=== PATIENT | female | born 1995 | race Caucasian/White ===

== ENCOUNTER → 2024-07-06 | Outpatient (CLI) | payer OTHER, SELFPAY ==
[2024-07-06 12:23] LABS: Absolute Neutrophil Count 8.1 X10^3/uL (2.0-7.7); Basophil# 0.06 X10^3/uL; Basophil% 0.5 % (0-1); Eosinophils% 1.7 % (0-5); Hematocrit 37.1 % (37-47); Hemoglobin 11.7 g/dL (12.0-15.0); Lymphocyte % 16.6 % (19-41); Mean Corp Hgb Conc 31.5 g/dL (32-36); Mean Corpuscular Hgb 26.2 pg (27.0-32.0); Mean Corpuscular Volume 83.2 fL (81-99); Mean Platelet Vol. 9.1 fl (6.2-12.0); Monocyte# 1.21 X10^3/uL; NRBC Flagged by Analyzer 0 % (0-5); Neutrophil # 8.14 X10^3/uL (2.7-7.7); Neutrophil % 67.6 % (47-70); Platelet Count 329 K/mm3 (150-450); RBC Distribution Width SD 42.4 fl (35.1-43.9); Red Blood Count 4.46 M/mm3 (4.2-5.4)
[2024-07-06 13:15] LABS: HIV - WCH Non-Reactive (Nonreactive); Syphilis Antibodies Non-reactive
== END | disposition home or self-care (01) ==
PROVIDERS: Referring Provider Obstetrics & Gynecology; Visit Provider Obstetrics & Gynecology
DX: O09.90 Supervision of high risk pregnancy, unspecified, unspecified trimester (principal); Z3A.00 Weeks of gestation of pregnancy not specified
CPT/HCPCS: 36415; 85025; 86703; 86780; 86850; 86900; 86901

== ENCOUNTER → 2024-07-26 | Outpatient (CLI) | payer OTHER, SELFPAY ==
[2024-07-30 03:13] LABS: Chlamydia By Nucleic Acid AMP Negative (Negative); Gonococcus By Nucleic Acid AMP Negative (Negative)
== END | disposition home or self-care (01) ==
PROVIDERS: Referring Provider Obstetrics & Gynecology; Visit Provider Obstetrics & Gynecology
DX: O09.90 Supervision of high risk pregnancy, unspecified, unspecified trimester (principal); Z3A.00 Weeks of gestation of pregnancy not specified
CPT/HCPCS: 87081; 87491; 87591

== ENCOUNTER 2024-08-05 19:40 | Inpatient (IN) | payer OTHER, SELFPAY ==
[2024-08-05] VITALS (33 sets, daily range): BP systolic 106–172; BP diastolic 56–90; PULSE 82–150; RESP 14–16; TEMP 36.1–36.6; O2SAT 97–100; BMI 35.4
[2024-08-05] MEDS: Lactated Ringers 1,000 ML 999 ML IV (20:05)
[2024-08-05] MEDS: Lactated Ringers 1,000 ML 50 ML IV (20:05)
[2024-08-05 20:24] LABS: Absolute Lymphocyte Count 2.69 X10^3/uL (0.83-4.51); Absolute Neutrophil Count 7.8 X10^3/uL (2.0-7.7); Basophil# 0.06 X10^3/uL; Basophil% 0.5 % (0-1); Eosinophil# 0.21 X10^3/uL; Eosinophils% 1.7 % (0-5); Hematocrit 36.3 % (37-47); Hemoglobin 11.4 g/dL (12.0-15.0); Lymphocyte # 2.69 X10^3/ul (0.83-4.51); Lymphocyte % 21.9 % (19-41); Mean Corp Hgb Conc 31.4 g/dL (32-36); Mean Corpuscular Hgb 25.3 pg (27.0-32.0); Mean Corpuscular Volume 80.5 fL (81-99); Mean Platelet Vol. 9.3 fl (6.2-12.0); Monocyte# 1.27 X10^3/uL; Monocyte% 10.3 % (0-10); NRBC Flagged by Analyzer 0 % (0-5); Neutrophil # 7.78 X10^3/uL (2.7-7.7); Neutrophil % 63.4 % (47-70); Platelet Count 309 K/mm3 (150-450); RBC Distribution Width CV 14.7 % (11.6-14.6); RBC Distribution Width SD 42.9 fl (35.1-43.9); Red Blood Count 4.51 M/mm3 (4.2-5.4); White Blood Count 12.3 K/mm3 (4.4-11.0)
[2024-08-05 20:37] LABS: AST(SGOT) 22 U/L (15-37); Alanine Aminotransfer ALT/SGPT 17 U/L (13-56); Creatinine, Serum 0.63 mg/dL (0.55-1.02); EST Glomerular Filtration Rate 119 mL/min (>60); Est Glom Filt Rate - Afr Amer 144 mL/min (>60); Estimated Creatinine Clearance 147.63 ml/min; Uric Acid 4.1 mg/dL (2.6-6.0)
[2024-08-05 20:38] LABS: Protein, Urine (Random) 20.6 mg/dL (<11.9); Protein:Creat Ratio 418 mg/g CRE (0-200)
[2024-08-05 20:57] LABS: Syphilis Antibodies Non-reactive
--- NOTE | 2024-08-05 21:25 | HP.PCM.OB_ITS ---
HPI - General General Date of Admission: 08/05/24 Date of Service: 08/05/24 HPI Narrative ZENON BAR, is a 29 F 37.6 weeks who presents to unit with contractions. had cervical change from office on . Elevated BPs noted 5 minutes apart on admission. After 15 minutes the BPs were below protocol. Dr Day aware and agrees with plan for pre eclampsia labs and to continue to monitor bps. If meets protocol will start HTN protocol. Maternal Data Information RADHA Calculator Estimated Delivery Date Method Current WG Current Estimate 08/20/24 LMP (Certain) 37w 6d Final RADHA: 08/20/24 Final RADHA Source: US >20 weeks Gestational age: 37.6 weeks PFSH PFS Home Medications ?Medication ?Instructions ?Recorded ?Last Taken ?Type docosahexaenoic acid 200 mg 1 mg PO DAILY 07/03/24 08/04/24 History capsule ( DHA) cyanocobalamin-liver extract tablet 1 tab PO DAILY pregnanc 07/06/24 08/04/24 History magnesium 250 mg tablet 250 mg PO DAILY 07/06/24 08/05/24 History omega-3 fatty acids 1,000 mg 1,000 mg PO DAILY 07/06/24 08/04/24 History capsule aspirin 81 mg tablet,delayed 81 mg PO QDAY 08/02/24 08/04/24 History release (Adult Low Dose Aspirin) Allergy/AdvReac Type Severity Reaction Status Date / Time latex Allergy Mild Hives Verified 08/05/24 19:25 Penicillins Allergy Mild Hives Verified 08/05/24 19:25 Family History Grandmother Bone cancer Lung cancer Grandfather CVA (cerebral vascular accident) Grandmother Lung cancer Grandfather Myocardial infarction Surgical History Attempted IUD removal, unsuccessful S/P tonsillectomy Social History adopted: No household members: spouse and children number of children: 1 current occupational status: employed 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 current occupational exposures/hazards: No pets and animals: Yes pets and animals: dog(s) history of recent travel: Yes details: [place] - 06/06 out of state: Yes out of country: No sexually active: Yes Smoking Status: Never smoker alcohol intake: current alcohol intake frequency: holidays/special occasions only details: Not while substance use type: does not use well-balanced diet: daily or most days caffeine: Yes Type: coffee eating out: rarely or never during the past year weight has: other details: when son was 8mo old sarah/hoahaoism: Jew seatbelt use: always do you feel safe at home: Yes additional social history: : Marcell Montero History 2 Elective abortions Hx Para 1 Spontaneous abortions Hx # Term Pregnancies 1 Ectopic pregnancies Hx # Pregnancies Multiple births # of living children 1 Past Pregnancies Del. Date Name GA/Weeks Outcome Route Bth Weight Gen Labor Lgth Anesthesia Del Locatn Provider FOB 12/16/22 [facility] 37 live - full term 6lbs 5oz Male epidural [facility] Delivery Date: 12/16/22 Last Updated by: Lupe Andre RN Dx with Pre-e at 36 1/2weeks - Induced Visit Details Expected Delivery Route/Plan Labor Preferences- CB/BF classes: [] labor support person: [] labor intervention preferences: [] pain management options preferred: [] cut cord/dad catch: [] : [] PP control planned: [] discussed possible routes of delivery and associated risks: [] special requests: [] Plans Covid status: [] Flu vaccine: [] Tdap vaccine: [] Rhogam: [] LARC form signed: [] Problem list reviewed and updated with the most current plan of care details and appropriate orders placed. Relevant counseling for the gestational age provided. Continue routine care and follow up unless otherwise noted in visit notes/problem list details OB Flowsheet Initial Weight: Not Recorded Date -?-?-?-?-?-?-?-?-?-?-?-?- EGA Weight BP Urine Prot -?-?-?-?-?-?-?-?-?-?-?-?- Glucose FHR FuHt Pres Dilation -?-?-?-?-?-?-?-?-?-?-?-?- Effaced St Visit Note 07/06/24 -?-?-?-?-?-?-?-?-?-?-?-?- 33w 4d 202 lb 123/77 -?-?-?-?-?-?-?-?-?-?-?-?- 140 34 -?-?-?-?-?-?-?-?-?-?-?-?- SM- GUME due to i nsurance changes. no vb lof good fm nor egular ctx SM- GUME due to insurance maria c nges. no vb lof good fm nor egular ctx giving rhogam today need to obtain labs from other office 07/19/24 -?-?-?-?-?-?-?-?-?-?-?-?- 35w 3d 202 lb 113/80 Negative -?-?-?-?-?-?-?-?-?-?-?-?- Negative 155 35 Cephalic -?-?-?-?-?-?-?-?-?-?--?-?- KW- no vb/lof/ct x. good fm. cephalic on US today 07/26/24 -?-?-?-?-?-?-?-?-?-?-?-?- 36w 3d 202 lb 4 oz 124/72 Nega tive -?-?-?-?-?-?-?-?-?-?-?-?- Negative 150 37 Cephalic 3 -?-?-?-?-?-?-?-?-?-?-?-?- 60 -2 JV- gbs an d gc/ct collected. no complaints today. labor precautions discussed. 08/02/24 -?-?-?-?-?-?-?-?-?-?-?-?- 37w 3d 204 lb 105/57 Negative -?-?-?-?-?-?-?-?-?-?-?-?- Negative 145 38 Cephalic 4 -?-?-?-?-?-?-?-?-?-?-?-?- 70 -1 kw- no vb/ lof/ctx. good fm. Labor precautions discussed NST FHR Rate Baby A Baseline: 130 Variability:: Moderate Accelerations:: 15 x 15 Decelerations:: None NST Reactive:: Yes FHR Category:: Category I Uterine Activity:: 4-5 minutes ROS Constitutional Constitutional: Denies change in weight, fatigue, fever(s), poor appetite or weakness Eyes Eyes: Denies blurry vision, change in vision, floaters, seeing flashes or spots in vision ENT HEENT: Denies dizziness, headache(s), loss taste/smell or sore throat Cardiovascular Cardiovascular: Denies chest pain, dizziness, dyspnea, irregular heart rhythm, lightheadedness, palpitations or rapid heart rate Respiratory/Chest Respiratory/Chest: Denies change in mental status, chest tightness, cough, dyspnea or breast pain Gastrointestinal Gastrointestinal: Denies anorexia, chewing difficulty, constipation, diarrhea or weight changes Genitourinary Genitourinary: Denies difficulty urinating, dysuria, flank pain, genital pain, urinary frequency or urinary urgency Musculoskeletal Musculoskeletal: Denies back pain, difficulty walking, extremity pain, joint pain, muscle cramps or muscle weakness Integumentary Integumentary: Denies lesions or unusual bruising Neurologic Neurologic: Denies abnormal movements, abnormal speech, dizziness, numbness, seizure-like activity, syncope or weakness Psychiatric Psychiatric: Denies behavioral changes, change in appetite, confusion, depression, homicidal ideation, suicidal ideation or suicidal thoughts Endocrine Endocrinology: Denies excessive sweating, polydipsia or polyuria Hematologic/Lymphatic Hematologic/Lymphatic: Denies anemia Allergic/Immunologic Allergic/Immunologic: Denies itchy eyes, lip swelling, throat swelling, tongue swelling or wheezing Vital Signs Vital Signs Vital Signs: 08/05/24 19:29 08/05/24 19:29 08/05/24 19:29 Temperature Temperature Source Temporal Pulse Rate 122 H Respiratory Rate 14 Blood Pressure BP Systolic BP Diastolic Pulse Ox 08/05/24 19:29 08/05/24 19:29 08/05/24 19:30 Temperature 97.9 F Temperature Source Pulse Rate Respiratory Rate Blood Pressure 172/77 H BP Systolic 172 BP Diastolic 77 Pulse Ox 97 08/05/24 19:30 08/05/24 19:35 08/05/24 19:35 Temperature Temperature Source Pulse Rate 118 H 121 H Respiratory Rate Blood Pressure 165/79 H BP Systolic 165 BP Diastolic 79 Pulse Ox 08/05/24 19:52 08/05/24 19:52 08/05/24 20:10 Temperature Temperature Source Pulse Rate 123 H Respiratory Rate Blood Pressure 156/77 H 138/90 H BP Systolic 156 138 BP Diastolic 77 90 Pulse Ox 08/05/24 20:10 08/05/24 20:22 08/05/24 20:22 Temperature Temperature Source Pulse Rate 120 H 116 H Respiratory Rate Blood Pressure 145/80 H BP Systolic 145 BP Diastolic 80 Pulse Ox 08/05/24 20:37 08/05/24 20:37 08/05/24 20:52 Temperature Temperature Source Pulse Rate 113 H Respiratory Rate Blood Pressure 147/89 H 141/79 H BP Systolic 147 141 BP Diastolic 89 79 Pulse Ox 08/05/24 20:52 08/05/24 21:01 08/05/24 21:01 Temperature Temperature Source Pulse Rate 121 H 115 H Respiratory Rate Blood Pressure 147/88 H BP Systolic 147 BP Diastolic 88 Pulse Ox 08/05/24 21:06 08/05/24 21:06 08/05/24 21:11 Temperature Temperature Source Pulse Rate 134 H Respiratory Rate Blood Pressure 146/83 H 152/89 H BP Systolic 146 152 BP Diastolic 83 89 Pulse Ox 08/05/24 21:11 08/05/24 21:16 08/05/24 21:16 Temperature Temperature Source Pulse Rate 120 H 121 H Respiratory Rate Blood Pressure 149/69 H BP Systolic 149 BP Diastolic 69 Pulse Ox 08/05/24 21:21 08/05/24 21:21 08/05/24 21:23 Temperature Temperature Source Pulse Rate 117 H 122 H Respiratory Rate Blood Pressure 148/80 H BP Systolic 148 BP Diastolic 80 Pulse Ox 08/05/24 21:23 Temperature Temperature Source Pulse Rate Respiratory Rate Blood Pressure BP Systolic BP Diastolic Pulse Ox 98 Weight Weight: 206 lb 12.697 oz Body Mass Index (BMI) 35.4 Physical Exam Const alert, oriented x3 and no apparent distress General Appearance: cooperative Orientation / Consciousness: awake HEENT normocephalic Neck full ROM Lymph Lymphatic: no lymphadenopathy noted Chest inspection of chest normal Resp normal respiratory effort and normal air movement Effort and Inspection: able to speak in complete sentences and symmetric chest movement GI soft to palpation and non-tender Inspection: gravid Palpation: soft; Negative for tender external exam normal Manual OB Exam: dilated 5, effaced 80 and station -1 Back/Spine normal to inspection Extremity normal to inspection and full ROM Skin no rashes or lesions noted Psych mental status grossly normal Appearance: grossly normal Speech: normal speech Labs Labs Labs: Blood Type O NEGATIVE Antibody Screen NEGATIVE Hct 36.3 % (37-47) L Hgb 11.4 g/dL (12.0-15.0) L Syphilis Total Ab Non-reactive Chlamydia DNA (BLADIMIR) Negative (Negative) N.gonorrhoeae DNA (BLADIMIR) Negative (Negative) HIV 1&2 Antibody Non-Reactive (Nonreactive) Assessment & Plan (1) Mild pre-eclampsia: COMMENT: upon admission (2) Active labor: PLAN: Patient presents IAL, plan expectant management for , pitocin/AROM PRN if needed. Pain management: plans epidural. GBS negative. Management of any complications: mild pre eclampsia noted upon admission. Dr Day aware I have reviewed the [facility] and made any clinically relevant updates. Dr Day aware of and agrees with admission, assessment and plan. (3) Rh negative status during : COMMENT: MOB- negative blood type, FOB - positive blood type *awaiting test results on baby if rhogam is needed (4) H/O pre-eclampsia in prior , currently : COMMENT: Dx at 36 1/2 weeks - induced at 37weeks (5) Supervision of high-risk : COMMENT: PRR,, RADHA 08/20/24, PC: Trent, *GIRL* : Marcell (6) : QUALIFIERS: Weeks of gestation: 37 weeks Qualified Code(s): Z3A.37 - 37 weeks gestation of COMMENT: gbs neg, Discussed genetic/carrier testing - Had NIPT and carrier done Charges/Coding Multi Select Codes Urinary/Genital Urinary/Genital CPT Codes: No Charge
[2024-08-05] MEDS: fentaNYL-bupivacaine (epidural) 100 ML BAG EPIDURAL (21:40)
--- NOTE | 2024-08-05 22:00 | PN_ITS ---
Progress Note comfortable with epidural current tracing: FHT: 130 Moderate variability reactive no decelerations category I tracing [place]: 5 minute Contractions Membranes: AROM clear SVE:7/80/-1 A/P: Continue with position changes start/Titrate pitocin per protocol if needed Epidural per anesthesia GBS neg Anticipate Dr Mart aware of above assessment and agrees with plan of care Assessment & Plan Assessment/Plan (1) Mild pre-eclampsia: (2) Active labor: (3) Rh negative status during : (4) H/O pre-eclampsia in prior , currently : (5) Supervision of high-risk : (6) : QUALIFIERS: Weeks of gestation: 37 weeks Qualified Code(s): Z3A.37 - 37 weeks gestation of Multi Select Codes Urinary/Genital Urinary/Genital CPT Codes: No Charge
[2024-08-05] MEDS: Oxytocin 15 Units/NS 250ml 15 UNITS/250 ML IV.SOLN 2 UNITS IV (23:26)
[2024-08-06] VITALS (38 sets, daily range): BP systolic 120–165; BP diastolic 62–98; PULSE 92–147; RESP 16; TEMP 36.2–36.8; O2SAT 82–99
[2024-08-06] MEDS: miSOPROStol 200 MCG Tablet 1000 MCG RC (00:30)
--- NOTE | 2024-08-06 00:36 | OP.PCM_ITS ---
Assessment & Plan (1) Vaginal delivery: COMMENT: KW IAL 38.0 Girl (2) Mild pre-eclampsia: COMMENT: upon admission (3) Active labor: (4) Rh negative status during : COMMENT: MOB- negative blood type, FOB - positive blood type *awaiting test results on baby if rhogam is needed (5) H/O pre-eclampsia in prior , currently : COMMENT: Dx at 36 1/2 weeks - induced at 37weeks (6) Supervision of high-risk : COMMENT: PRR,, RADHA 08/20/24, PC: Trent, *GIRL* : Marcell (7) : QUALIFIERS: Weeks of gestation: 37 weeks Qualified Code(s): Z3A.37 - 37 weeks gestation of COMMENT: gbs neg, Discussed genetic/carrier testing - Had NIPT and carrier done Maternal Data Information RADHA Calculator Estimated Delivery Date Method Current WG Current Estimate 08/20/24 LMP (Certain) 38w 0d Final RADHA: 08/06/24 Final RADHA Source: US >20 weeks Gestational age: 38.0 Vaginal Delivery Maternal Presentation Maternal Presentation: Active Labor Maternal Presentation: Progressed well to 10cm dilated and made steady progress with effective maternal pushing. Delivered the head in MONIQUE presentation. The head was delivered atraumatically and no nuchal cord was identified. The anterior and posterior shoulders delivered without complication followed by the rest of the infant and the was placed on the maternal abdomen. Delayed cord clamping was employed for approximately 5 minutes. Cord was clamped and cut and gentle traction was applied to the cord and the placenta delivered spontaneously. Immediately following, it was noted to be intact with a 3 vessel cord. IV Gerard hossein started and vaginal bleeding noted to be brisk at this time. Uterine sweep performed and clots extracted. Rectal Cytotec given. The perineum and vagina were inspected and noted to have no laceration. EBL was 900cc. Apgars 8/8. Patient and infant tolerated delivery well. Bonding skin to skin during recovery. Dr Menezes notified of vaginal delivery and orders reviewed. Physician agrees with current plan of care. 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: Rebecca Mcnair Type of Anesthesia: Epidural Estimated Blood Loss: 900 Time of Delivery: 00:16 Findings Presentation: Vertex Amniotic Membrane Rupture Type: Artificial Amniotic Fluid Description: Clear Placental Delivery Description: Spontaneous Placenta Disposition: [facility] Cord Vessel Description: 3 Vessels Cord Entanglement: None A Gender: Female (1 minute): 8 (5 minute): 8 Delayed Cord Clamping: Yes Post Vaginal Delivery Medications Given After Delivery: IV Pitocin and - (cytotec) Episiotomy Description: None Laceration: None Complication Complications: None Multi Select Codes Urinary/Genital Urinary/Genital CPT Codes: 53095 Vaginal Delivery [facility]
--- NOTE | 2024-08-06 00:43 | DCINST_ITS ---
Discharge Instructions Diet Discharge Diet: No restrictions Activity Discharge Activity: Return to Normal Activity May resume sexual activity in: 6-8 weeks Dressing / Incision Call your doctor if you observe: Fever of 101 or Higher, Coldness, Increased Pain, Numbness or Tingling, Change in Color, Inability to urinate, Inability to have a bowel movement, Using more than 1 pad per hour, Shortness of breath, Dizziness, Fainting spells, Swelling in the ankles, Chest pain, Increased palpitations (irregular heartbeat), Calf discomfort and Uncontrolled pain Follow Up Care Please Follow Up With: Rebecca Mcnair CNM When: Please call the office to schedule your follow up appointment in 6 weeks. If you had high blood pressure please call to schedule an appointment in 2 weeks. Test Results: Test results from this visit will be discussed in further detail at your follow- up appointment, if applicable. Discharge Plan Admission Admit Date/Time: 08/05/24 19:40 Attending Provider: Rebecca Mcnair Primary Care Provider: Care Physician,No Primary Discharge Orders/Prescriptions Prescriptions: No Action magnesium 250 mg tablet 250 mg PO DAILY omega-3 fatty acids 1,000 mg capsule 1,000 mg PO DAILY cyanocobalamin-liver extract Tablet 1 tab PO DAILY DHA 200 mg capsule 1 mg PO DAILY aspirin [Adult Low Dose Aspirin] 81 mg tablet,delayed release (DR/EC) 81 mg PO QDAY Referrals / Follow Up: Care Physician,No Primary [Primary Care Provider] -
[2024-08-06] MEDS: Oxytocin 15 Units/NS 250ml 15 UNITS/250 ML IV.SOLN 83 UNITS IV (01:10)
[2024-08-06] MEDS: Ibuprofen 600 MG Tablet PO ×4 (02:58→21:29)
[2024-08-06 12:17] LABS: Absolute Lymphocyte Count 2.73 X10^3/uL (0.83-4.51); Absolute Neutrophil Count 11.5 X10^3/uL (2.0-7.7); Basophil# 0.07 X10^3/uL; Basophil% 0.4 % (0-1); Eosinophil# 0.17 X10^3/uL; Eosinophils% 1.1 % (0-5); Hematocrit 34.8 % (37-47); Hemoglobin 11.1 g/dL (12.0-15.0); Lymphocyte # 2.73 X10^3/ul (0.83-4.51); Lymphocyte % 17.1 % (19-41); Mean Corp Hgb Conc 31.9 g/dL (32-36); Mean Corpuscular Hgb 25.4 pg (27.0-32.0); Mean Corpuscular Volume 79.6 fL (81-99); Mean Platelet Vol. 9.8 fl (6.2-12.0); Monocyte# 1.37 X10^3/uL; Monocyte% 8.6 % (0-10); NRBC Flagged by Analyzer 0 % (0-5); Neutrophil # 11.49 X10^3/uL (2.7-7.7); Neutrophil % 71.7 % (47-70); Platelet Count 311 K/mm3 (150-450); RBC Distribution Width CV 14.6 % (11.6-14.6); Red Blood Count 4.37 M/mm3 (4.2-5.4)
[2024-08-07 00:45] VITALS: BP 131/72; PULSE 90; RESP 16; TEMP 36.3
[2024-08-07] MEDS: Ibuprofen 600 MG Tablet PO (04:13)
[2024-08-07 04:24] VITALS: BP 124/68; PULSE 101; RESP 16
[2024-08-07 07:53] VITALS: BP 116/71; PULSE 89; RESP 16; TEMP 36.2
--- NOTE | 2024-08-07 08:59 | PN.OBGYN_ITS ---
Subjective Subjective Patient doing well without complaints. Tolerating PO. Ambulating and voiding without difficulty. feeding well. Denies chest pain, shortness of breath, calf pain/swelling, fevers, chills, lightheadedness. Objective Data Objective Data Vital Signs: Vital Signs Temp Pulse Resp BP Pulse Ox O2 Del Method 97.0 F L 89 16 116/71 98 Room Air 08/07/24 07:53 08/07/24 07:53 08/07/24 07:53 08/07/24 07:53 08/06/24 21:15 08/07/24 07:53 Oxygen Delivery Method Room Air Weight: 206 lb 12.697 oz Body Mass Index (BMI) 35.4 Intake & Output: Intake and Output for Last 24 Hours 08/05/24 08/06/24 08/07/24 23:59 23:59 23:59 Intake Total 1049 / 1049 1140.00 / 1140.00 Output Total 550 / 550 1250 / 1250 Balance 499 / 499 -110.00 / -110.00 Lab / Micro Data 08/06/24 11:50 08/05/24 20:05 Labs: Laboratory Results - last 24 hr 08/06/24 11:50: WBC 16.0 H, RBC 4.37, Hgb 11.1 L, Hct 34.8 L, MCV 79.6 L, MCH 25.4 L, MCHC 31.9 L, RDW Std Deviation 42.0, RDW Coeff of Maria Esther 14.6, Plt Count 311, MPV 9.8, Immature Gran % (Auto) 1.100 H, Neut % (Auto) 71.7 H, Lymph % (Auto) 17.1 L, Person % (Auto) 8.6, Eos % (Auto) 1.1, Baso % (Auto) 0.4, Absolute Neuts (auto) 11.5 H, Absolute Lymphs (auto) 2.73, Nucleated RBC % 0 ROS Constitutional Constitutional: Reports systems reviewed and no addt'l complaints, except as documented Cardiovascular Cardiovascular: Reports systems reviewed and no addt'l complaints, except as documented Respiratory/Chest Respiratory/Chest: Reports systems reviewed and no addt'l complaints, except as documented Gastrointestinal Gastrointestinal: Reports systems reviewed and no addt'l complaints, except as documented Physical Exam Const alert, oriented x3 and no apparent distress HEENT Head and Scalp: atraumatic Resp normal respiratory effort GI soft to palpation and non-tender Bimanual Exam - Vag & Uterus: uterus non-tender Uterus Palpation: uterus fundus firm (below Umbilicus) Assessment & Plan (1) Vaginal delivery: COMMENT: KW IAL 38.0 Girl PLAN: Plan s/p PPD # 1 1. routine post delivery care 2. breast feeding- support given 3. rh positive 4. rubella immune
[2024-08-07 09:13] VITALS: BP 116/71; PULSE 89; RESP 16; TEMP 36.2
== END 2024-08-07 10:55 | disposition home or self-care (01) | DRG 807 ==
LOC: WPOUT 19:45 → WP 19:45
PROVIDERS: Admitting Provider Advanced Practice Midwife; Referring Provider Advanced Practice Midwife; Visit Provider Advanced Practice Midwife
DX: O14.04 Mild to moderate pre-eclampsia, complicating childbirth (principal); Z37.0 Single live birth; O72.1 Other immediate postpartum hemorrhage; Z3A.38 38 weeks gestation of pregnancy; Z79.82 Long term (current) use of aspirin
CPT/HCPCS: 59025; 59050; 82565; 82570; 84156; 84450; 84460; 84550; 85025; 86780; 86850; 86900; 86901; 99221; J7120; G0378